=== PATIENT | female | born 1945 | race Caucasian/White ===

== ENCOUNTER → 2019-04-05 | Outpatient (CLI) | payer MEDICARE, OTHER ==
--- NOTE | 2019-04-06 07:24 | XR ---
EXAMINATION TYPE: XR chest 2V DATE OF EXAM: 04/05/2019 COMPARISON: NONE HISTORY: Increasing shortness of breath for 6 months TECHNIQUE: Frontal and lateral views of the chest are obtained. FINDINGS: There is no focal air space opacity, pleural effusion, or pneumothorax seen. The cardiac silhouette size is within normal limits. Mild multilevel degenerative changes of the spine are seen. The osseous structures are intact. IMPRESSION: No acute cardiopulmonary process.
== END | disposition home or self-care (01) ==
LOC: RADXRYALE 16:15
PROVIDERS: ATTEND Physician Assistant Medical
DX: R06.02 Shortness of breath (principal)
CPT/HCPCS: 71046

== ENCOUNTER → 2022-04-16 | Outpatient (CLI) | payer MEDICARE, OTHER ==
--- NOTE | 2022-04-17 08:09 | MM ---
Reason for Exam: Screening (asymptomatic). Last mammogram was performed 7 year(s) and 1 month(s) ago. Patient History: Menarche at age 14. Patient has no children. Postmenopausal. Risk Values: Kerry 5 year model risk: 2.0%. NCI Lifetime model risk: 4.2%. Prior Study Comparison: 03/26/2015 Bilateral Screening Mammogram, [facility]. Tissue Density: The breast tissue is heterogeneously dense. This may lower the sensitivity of mammography. Findings: Analyzed By CAD. There is no suspicious group of microcalcifications or new suspicious mass in either breast. Stable benign calcifications noted bilaterally. Overall Assessment: Benign, BI-RAD 2 Management: Screening Mammogram of both breasts in 1 year. A clinical breast exam by your physician is recommended on an annual basis and results should be correlated with mammographic findings. Electronically signed and approved by: David Mesa M.D. Radiologis
== END | disposition home or self-care (01) ==
LOC: RADMAMWWP 09:41
PROVIDERS: ATTEND Family Medicine
DX: Z12.31 Encounter for screening mammogram for malignant neoplasm of breast (principal); Z78.0 Asymptomatic menopausal state
CPT/HCPCS: 77063; 77067

== ENCOUNTER → 2023-10-12 | Outpatient (CLI) | payer MEDICARE, OTHER ==
--- NOTE | 2023-10-14 09:06 | MM ---
Reason for Exam: Screening (asymptomatic). Last mammogram was performed 1 year(s) and 6 month(s) ago. Patient History: Menarche at age 14. Patient has no children. Postmenopausal. Risk Values: Kerry 5 year model risk: 2.0%. NCI Lifetime model risk: 4.0%. Prior Study Comparison: 03/26/2015 Bilateral Screening Mammogram, [facility]. 04/16/2022 Bilateral MG 3D screening mammo w/cad, [facility]. Tissue Density: The breast tissue is heterogeneously dense. This may lower the sensitivity of mammography. Findings: Analyzed By CAD. There is no suspicious group of microcalcifications or new suspicious mass. Benign-appearing calcifications bilaterally. Overall Assessment: Benign, BI-RAD 2 Management: Screening Mammogram of both breasts in [address] [facility] will attempt to contact patient to return for supplemental views and ultrasound if indicated. Patient should continue monthly self-breast exams. A clinical breast exam by your physician is recommended on an annual basis. This exam should not preclude additional follow-up of suspicious palpable abnormalities. Note on Kerry scores and lifetime risk: 1. A Kerry score greater than 3% is considered moderate risk. If this is the case, consider specialist referral to assess eligibility for a risk reducing agent. 2. If overall lifetime risk for the development of breast cancer is 20% or higher, the patient may qualify for future screening with alternating mammogram and breast MRI. Electronically signed and approved by: Milan Cavazos DO
== END | disposition home or self-care (01) ==
LOC: RADMAMWWP 11:23
PROVIDERS: ATTEND Family Medicine
DX: Z12.31 Encounter for screening mammogram for malignant neoplasm of breast (principal); Z78.0 Asymptomatic menopausal state
CPT/HCPCS: 77063; 77067

== ENCOUNTER → 2025-01-22 | Outpatient (CLI) | payer MEDICARE, OTHER ==
--- NOTE | 2025-01-22 16:55 | XR ---
EXAMINATION TYPE: XR finger RT DATE OF EXAM: 01/22/2025 4:44 PM COMPARISON: None CLINICAL INDICATION: Female, 79 years old with history of [id number] RT FINGER PAIN; YCH, pain TECHNIQUE: XR finger RT 2 views were obtained. FINDINGS: Normal alignment of the visualized joints. No acute osseous pathology is identified. Multi focal degeneration changes with joint space narrowing and osteophyte formation worse at the second di git distal interphalangeal joint with mild soft tissue swelling around the joint.. No evidence for os seous erosion. IMPRESSION: 1. Mild swelling on the first second digit. No acute osseous pathology. 2. Multifocal osteoarthrosis throughout the joints of the hand. [facility], , 01/22/2025 4:53 PM
== END | disposition home or self-care (01) ==
LOC: RADXRYALE 16:30
PROVIDERS: ATTEND Physician Assistant Medical
DX: M19.041 Primary osteoarthritis, right hand (principal)

== ENCOUNTER → 2025-02-19 | Outpatient (CLI) | payer MEDICARE, OTHER ==
--- NOTE | 2025-02-19 15:09 | BD ---
EXAMINATION TYPE: Axial Bone Density DATE OF EXAM: 02/19/2025 CLINICAL HISTORY: 79 years old Female. ICD-10 CODE: M85.9 DISORDER OF BONE , Additional History: Height: 66.5 Weight: 199.6 FRAX RISK QUESTIONS: Alcohol (3 or more units per day): no Family History (Parent hip fracture): no Glucocorticoids (More than 3mos): no (Ex: prednisone, prednisolone, methylprednisolone, dexamethasone, and hydrocortisone). History of Fracture in Adulthood: no Secondary Osteoporosis: 1. Type 1 Diabetes: no 2. Hyperthyroidism: no 3. Menopause before 45: no 4. Malnutrition: no 5. Chronic liver disease: no Rheumatoid Arthritis: no Current Tobacco Use: no RISK FACTORS HISTORY OF: Hip Fracture (Right/Left): no Spine Fracture: no History of Wrist Fracture: no Surgery to Spine/Hip(right/left)/Wrist (right/left): no MEDICATIONS: Thyroid Medications: no Osteoporosis Medications: no EXAM MEASUREMENTS: Bone mineral densitometry was performed using the [employer]. Bone mineral density as measured about the Lumbar spine is: ----- L1-L4(G/cm2): 1.166 T Score Values are as follows: ----- L1: -0.7 ----- L2: -0.2 ----- L3: 0.3 ----- L4: -0.2 ----- L1-L4: -0.1 Z Score Values are as follows: ----- L1: 0.3 ----- L2: 0.8 ----- L3: 1.3 ----- L4: 0.8 ----- L1-L4: 0.8 Bone mineral density has: increased 7.2 % since study of: 03/19/2015 Bone mineral density about the R hip (g/cm2): 1.011 Bone mineral density about the L hip (g/cm2): 1.005 T Score values are as follows: -----R Neck: -0.9 -----L Neck: -1.0 -----R Total: 0.0 -----L Total: 0.0 Z Score values are as follows: -----R Neck: 0.6 -----L Neck: 0.5 -----R Total: 1.3 -----L Total: 1.3 Bone mineral density has: increased 0.8 % since study of: 03/19/2015 FRAX%s: The graph provided illustrates a 10.4% chance for a major osteoporotic fx and a 1.8% chance f or the hips probability for fx in 10 years time. IMPRESSION: Normal (Values between +1 and -1 indicate normal bone mass). Consider repeating this study in 5 year s or sooner if there is some new clinical indication. NOTE: T-SCORE=SD OF THE YOUNG ADULT MEAN. [facility], , 02/19/2025 3:07 PM
--- NOTE | 2025-02-20 12:27 | MM ---
Reason for Exam: Screening (asymptomatic). Last mammogram was performed 1 year(s) and 4 month(s) ago. Patient History: Menarche at age 14. Patient has no children. Postmenopausal. Risk Values: Kerry 5 year model risk: 1.9%. NCI Lifetime model risk: 3.4%. Prior Study Comparison: 03/26/2015 Bilateral Screening Mammogram, [facility]. 04/16/2022 Bilateral MG 3D screening mammo w/cad, [facility]. 10/12/2023 Bilateral MG 3D screening mammo w/cad, [facility]. Tissue Density: The breasts are heterogeneously dense, which may obscure small masses. Findings: Analyzed By CAD. There is no suspicious group of microcalcifications or new suspicious mass in either breast. Overall Assessment: Benign, BI-RAD 2 Management: Screening Mammogram of both breasts in 1 year. . Patient should continue monthly self-breast exams. A clinical breast exam by your physician is recommended on an annual basis. This exam should not preclude additional follow-up of suspicious palpable abnormalities. Note on Kerry scores and lifetime risk: 1. A Kerry score greater than 3% is considered moderate risk. If this is the case, consider specialist referral to assess eligibility for a risk reducing agent. 2. If overall lifetime risk for the development of breast cancer is 20% or higher, the patient may qualify for future screening with alternating mammogram and breast MRI. [facility], , 02/19/2025 1:54 PM. Electronically signed and approved by: David Mesa M.D. Radiologis
== END | disposition home or self-care (01) ==
LOC: RADMAMWWP 13:46
PROVIDERS: ATTEND Family Medicine
DX: Z12.31 Encounter for screening mammogram for malignant neoplasm of breast (principal); R92.333 Mammographic heterogeneous density, bilateral breasts; Z78.0 Asymptomatic menopausal state; M85.9 Disorder of bone density and structure, unspecified; M85.852 Other specified disorders of bone density and structure, left thigh
CPT/HCPCS: 77063; 77067; 77080